=== PATIENT | female | born 1995 | race African-American/Black ===

== ENCOUNTER 2021-01-01 22:04 | Emergency (ER) | payer MEDICARE, OTHER ==
[~2021-01-01] VITALS: Ht 175.3 cm; Wt 100.0 kg
[2021-01-01] MEDS ORDERED: EFFEXOR XR150 MG PO (22:46)
[2021-01-01] MEDS ORDERED: CLONAZEPAM0.5 M1 PO (22:47)
[2021-01-01] MEDS ORDERED: TIZANIDINE4 MG PO (22:47)
[2021-01-01] MEDS ORDERED: CELECOXIB100 MG PO (22:48)
[2021-01-01] MEDS ORDERED: PHENERGAN25 MG/TAB PO (22:49)
[2021-01-01] MEDS ORDERED: OXYCODONE20 M1 PO (22:49)
[2021-01-02 00:04] LABS: HEMATOCRIT 37.1 % (37.0-47.0); HEMOGLOBIN 12.3 g/dl (12.0-16.0); IMMATURE GRANULOCYTES 0.3 % (0.0-5.0); MEAN CELL VOLUME 93.2 fL CALC (80.0-100.0); MEAN CORPUSCULAR HGB 30.9 pG CALC (26.0-32.0); MEAN CORPUSCULAR HGB CONC 33.2 g/dL CAL (32.0-36.0); NEUT# 5.02 thou/uL (2.00-7.15); RED BLOOD COUNT 3.98 mill/uL (4.20-5.60); RED CELL DISTRI WIDTH 12.3 % (11.5-15.5)
[2021-01-02 00:28] LABS: ALKALINE PHOSPHATASE 85 u/l (38-126); ANION GAP 10 (6-22 (CALC)); BILIRUBIN, TOTAL 0.4 mg/dL (0.0-1.4); BUN 16 mg/dL (7-17); BUN/CREATININE RATIO 22 (12-20 (CALC)); CARBON DIOXIDE 26 mmol/l (22-30); CHLORIDE 103 mmol/l (95-108); CREATININE 0.7 mg/dL (0.5-1.0); GFR > 60 ML/MIN (>=60 (CALC)); GFR FOR AFR.AMER. > 60 ML/MIN (>=60 (CALC)); POTASSIUM 3.6 mmol/l (3.5-5.1); SGOT/AST 82 u/l (14-36); SODIUM 136 mmol/l (137-146); TOTAL PROTEIN 7.3 g/dL (6.3-8.2)
[2021-01-02 05:09] VITALS: BP 130/85
== END 2021-01-02 05:32 | disposition left against medical advice (07) ==
LOC: ED 22:04
PROVIDERS: Emergency Medicine
DX: S00.12XA Contusion of left eyelid and periocular area, initial encounter (principal); S00.11XA Contusion of right eyelid and periocular area, initial encounter; S00.81XA Abrasion of other part of head, initial encounter; S00.212A Abrasion of left eyelid and periocular area, initial encounter; S70.12XA Contusion of left thigh, initial encounter; C85.90 Non-Hodgkin lymphoma, unspecified, unspecified site; F17.200 Nicotine dependence, unspecified, uncomplicated; X99.9XXA Assault by unspecified sharp object, initial encounter; Y92.410 Unspecified street and highway as the place of occurrence of the external cause; Z91.19 Patient's noncompliance with other medical treatment and regimen